=== PATIENT | male | born 1975 | race Caucasian/White ===

== ENCOUNTER 2022-02-04 09:15 | Day surgery (SDC) | payer BC ==
[~2022-02-04 09:15] MED LIST: Propofol 200 MG/20 ML SDV ONE
[2022-02-04] MEDS ORDERED: Sodium Chloride 0.9% 10 ML Syringe FLUSH PRN (09:30)
[2022-02-04] MEDS ORDERED: Lactated Ringers 1,000 ML IV SCH (09:30)
[2022-02-04] MEDS ORDERED: Propofol 200 MG/20 ML SDV ONE ×3 (11:52→12:08)
[2022-02-04 15:25] VITALS: BP 132/78; PULSE 69
== END 2022-02-04 13:10 | disposition home or self-care (01) ==
LOC: LL.SDS 09:15
PROVIDERS: ATTEND Surgery
DX: Z12.11 Encounter for screening for malignant neoplasm of colon (principal); K57.30 Diverticulosis of large intestine without perforation or abscess without bleeding; I10 Essential (primary) hypertension; E78.5 Hyperlipidemia, unspecified; J02.9 Acute pharyngitis, unspecified; J06.9 Acute upper respiratory infection, unspecified; F33.40 Major depressive disorder, recurrent, in remission, unspecified; E66.01 Morbid (severe) obesity due to excess calories; Z79.4 Long term (current) use of insulin; Z68.34 Body mass index [BMI] 34.0-34.9, adult
CPT/HCPCS: 00812; J2704; J7120

== ENCOUNTER 2023-04-16 10:21 | Emergency (ER) | payer BC ==
[2023-04-16 10:27] VITALS: PULSE 69
[2023-04-16 10:48] VITALS: BP 149/76
[2023-04-16] MEDS: Lidocaine 1% 5 ML VIAL INJECT ONE (10:48)
[2023-04-16] MEDS ORDERED: Diphtheria,Pertussis(Acell),Tetanus Vaccine 0.5 ML Syringe ONE (11:10)
[2023-04-16] MEDS: Diphtheria,Pertussis(Acell),Tetanus Vaccine 0.5 ML Syringe IM ONE (11:11)
[2023-04-16] MEDS: Bacitracin Oint 1 GM U/D Packet TOP ONE (11:22)
[2023-04-16] MEDS: Take Home: Cephalexin 500 MG Cap, 6 Cap Pack PO ONE (11:22)
== END 2023-04-16 11:40 | disposition home or self-care (01) ==
LOC: LL.ED 10:21
DX: S61.012A Laceration without foreign body of left thumb without damage to nail, initial encounter (principal); I10 Essential (primary) hypertension; Z23 Encounter for immunization; Z79.899 Other long term (current) drug therapy; W54.0XXA Bitten by dog, initial encounter; Y92.009 Unspecified place in unspecified non-institutional (private) residence as the place of occurrence of the external cause
CPT/HCPCS: 12001; 90471; 90715; 99282-25; 99283; A9270-GY; J3490